=== PATIENT | female | born 1945 | race Caucasian/White ===

== ENCOUNTER 2019-07-18 13:00 | Emergency (ER) | payer MEDICARE ==
[2019-07-18] MEDS ORDERED: LIDOCAINE 1% INJ-PF (10 MG/ML) 30 ML SDV INJ ONE (14:27)
--- NOTE | 2019-07-18 14:32 | ER Document Report ---
HPI - HPI Time Seen by Provider: 07/18/19 14:19 Pain Level: Denies Context: Patient is a 72-year-old female presents emergency department with a chief complaint of fall. Patient reports around 11:30 AM this morning she was ambulating down the hallway carrying a yeti mug when she tripped over a shoe. Patient reports she did fall striking her face on her metal yeti cup and carpeted floor. Patient denies loss of consciousness. Patient denies use of blood thinners but does take a baby aspirin per day. Patient reports her tetanus shot is not up-to-date. Patient reports she feels like she has a laceration inside the top of her upper lip as well as the outside. Patient denies of facial pain. - REPRODUCTIVE Reproductive: DENIES: : Past Medical History - General Information source: Patient - Social History Smoking Status: Unknown if Ever Smoked Chew tobacco use (# tins/day): No Frequency of alcohol use: None Drug Abuse: None Lives with: Spouse/Significant other Family History: None Patient has suicidal ideation: No Patient has homicidal ideation: No Vertical Provider Document - CONSTITUTIONAL Agree With Documented VS: Yes Exam Limitations: No Limitations General Appearance: No Apparent Distress - INFECTION CONTROL TRAVEL OUTSIDE OF THE [place] IN LAST 30 DAYS: No - HEENT HEENT: Normal ENT Exam, Normocephalic, PERRLA Notes: There is no crepitus when palpating the nasal and facial bones. No significant edema or ecchymosis. No broken teeth. - NECK Neck: Normal Inspection - RESPIRATORY Respiratory: Breath Sounds Normal, No Respiratory Distress - CARDIOVASCULAR Cardiovascular: Regular Rate, Regular Rhythm - GI/ABDOMEN Gastrointestinal: Abdomen Soft, Abdomen Non-Tender, Normal Bowel Sounds - MUSCULOSKELETAL/EXTREMETIES Musculoskeletal/Extremeties: FROM - NEURO Level of Consciousness: Awake, Alert, Appropriate - DERM Integumentary: Laceration Notes: Irregular L shaped laceration noted above the left upper lip. No edema or ecchymosis. Course - Re-evaluation Re-evalutation: 07/18/19 14:32 We will update the patient's tetanus shot. Patient will need a bed to thoroughly cleanse the wound to evaluate properly. Patient will need suture repair. - Vital Signs Vital signs: Temp Pulse Resp BP Pulse Ox 97.7 F 88 16 153/86 H 97 07/18/19 13:07/18/19 13:07/18/19 13:07/18/19 13:07/18/19 13:09 Procedures - Laceration/Wound Repair Left Face Time completed: 15:15 Wound length (cm): 2 - [id number] Wound's Depth, Shape: Irregular Laceration pre-procedure: Sterile PPE donned, Sterile drapes applied, Shur-Clens applied Anesthetic type: 1% Lidocaine Volume Anesthetic (mLs): 3 Wound explored: Clean Irrigated w/ Saline (mLs): 150 Wound Repaired With: Sutures Suture Size/Type: 6:0, 5:0, Vicryl, Ethilon Number of Sutures: 6 - (5) 6-0 Ethilon, (1) 5-0 Vicryl Post-procedure NV exam normal: Yes Complications: No Adult Head Front/Back picture: 1 - [id number] laceration, 5 sutures were placed on the outside and 1 Vicryl suture placed on the inside. There was a 1 cm laceration underneath the left upper lip inside the mouth. Did not go through. Discharge - Discharge Clinical Impression: Facial laceration Qualifiers: Encounter type: initial encounter Qualified Code(s): S01.81XA - Laceration without foreign body of other part of head, initial encounter Condition: Stable Disposition: HOME, SELF-CARE Additional Instructions: *Today was seen in the emergency department for a lip injury. You did have 5 sutures placed on the outside. Those you do need be removed in about [address] 1 dissolvable suture inside your mouth which will dissolve on its own in about 7 to 10 days. Do expect some swelling to your upper lip over the next few days as well as bruising. Please watch for signs and symptoms of infection to include significant drainage, increased redness, fever or any new or worsening symptoms. Once the suture repair is healed please use a sunscreen over the area to help prevent scarring. Please use the syringe that was given to you here in the emergency department to help irrigate the laceration that was partially left open inside her mouth. This will help prevent food and other debris getting stuck inside the wound. LACERATION CARE: Your laceration has been sutured to keep the skin edges aligned during healing. The time of suture removal depends on the nature and location of your cut. Please follow the care instructions the doctor has outlined for you and return for further care, according to the schedule you've been given. Keep the wound and dressing clean. Unless you were told otherwise, you may shower daily, blotting the wound dry with a clean, unused towel. At other times, If the dressing gets wet or blood soaked, remove it and blot the wound dry, then reapply a new dressing. Unless you were instructed otherwise, dressings should be changed at least daily. If any signs of infection occur (swelling, redness, drainage, increasing tenderness, red streaks, tender lumps in the armpit or groin above the laceration, or fever), see the doctor immediately. ANTIBIOTIC OINTMENT PROTECTION: Your wounds are such that dressing them is not practical or optional. After cleansing, you should apply a thin coating of antibiotic ointment (Bacitracin, not Neosporin) to the wounds at least three times daily. This lessens infection risk, and may decrease the amount of scarring. Use a q-tip or dull butter knife, not your finger, to apply this ointment. Any debris or ooze which builds up in the ointment should be gently rubbed off with a sterile gauze pad. Harder crusting may need to be gently scrubbed off with a clean wash cloth with soap and warm water, perhaps applying a warm, wet wash cloth to the wound for ten minutes first. Development of redness, severe itching, or blistering may mean allergy to the ointment. See the doctor. TETANUS IMMUNIZATION GIVEN: You have been given an immunization against tetanus. Please record this in your records. In general, a booster is needed only once every 10 years. The tetanus shot protects against tetanus or "lockjaw," which is a complication of certain wound infections (the tetanus shot cannot protect against the actual infection). The immunization site may become warm and red due to local reaction. If t his occurs, apply warm compresses and take aspirin or ibuprofen to reduce inflammation and discomfort. Return for evaluation if the reaction becomes severe. FOLLOW-UP CARE: Your sutures should be removed in __5___ days. To facilitate a timely removal of your sutures, you may return to the Emergency Department at [facility]. You do not need to call for an appointment, but the best time to come in for suture removal is early in the morning. If you have been referred to another physician for follow-up care, call that physicians office for an appointment as you were instructed. If you experience a significant change in your laceration, or if you are concerned there may be an infection (swelling, redness, drainage, increasing tenderness, red streaks, tender lumps in the armpit or groin above the laceration, or fever), return to the Emergency Department immediately re-evaluation. Referrals: ROCK LEZAMA MD [Primary Care Provider] - Follow up as needed
[2019-07-18] MEDS ORDERED: DIPH/PERTUSS(ACELL)/TETANUS VAC/PF 0.5 ML SYR (>=10YO) IM ONE (15:44)
[2019-07-18 15:55] VITALS: BP 137/74
== END 2019-07-18 15:55 | disposition home or self-care (01) ==
LOC: EDBD → ER 13:00
DX: S01.511A Laceration without foreign body of lip, initial encounter (principal); W01.198A Fall on same level from slipping, tripping and stumbling with subsequent striking against other object, initial encounter; Z23 Encounter for immunization
CPT/HCPCS: 90471; 90715; 99282